=== PATIENT | male | born 1985 | race Caucasian/White ===

== ENCOUNTER 2016-12-20 20:26 | Inpatient (IN) | payer BC, MEDICAID, OTHER ==
--- NOTE | 2016-12-20 22:11 | ED ---
Psych HPI - General Chief Complaint: Psychiatric Symptoms Stated Complaint: Petition Time Seen by Provider: 12/20/16 20:35 Source: patient, police, RN notes reviewed Mode of arrival: ambulatory Limitations: no limitations - History of Present Illness Initial Comments: 31-year-old male presents emergency Department with police for psychiatric evaluation. Patient was arrested today for DUI. Patient states she's been under a lot of stress Aziz hadn't multiple life changes and the events recently. Patient states that he was in [facility] cell started having a panic attack and states he tried to hang himself with a blanket. Patient had a tight around his neck reportedly. Patient had no loss conscious. Patient states that he did punch the wall but has only abrasions to her right hand no pain. Patient does admit to alcohol use and marijuana use. Patient denies any suicidal thoughts or homicidal thoughts time. Patient denies any headache, back pain or any other complaints. - Related Data Home Medications Medication Instructions Recorded Confirmed Diazepam [Valium] 10 mg PO DAILY PRN 12/20/16 12/20/16 HYDROcodone/APAP 10-325MG [[place] 0.5 tab PO DAILY PRN 12/20/16 12/20/16 10-325] Allergies Allergy/AdvReac Type Severity Reaction Status Date / Time No Known Allergies Allergy Verified 12/20/16 21:48 Review of Systems ROS Statement: Those systems with pertinent positive or pertinent negative responses have been documented in the HPI. ROS Other: All systems not noted in ROS Statement are negative. Past Medical History Additional Past Medical History / Comment(s): concussion, History of Any Multi-Drug Resistant Organisms: None Reported Past Surgical History: No Surgical Hx Reported Past Psychological History: Anxiety Smoking Status: Current every day smoker Past Alcohol Use History: Occasional Past Drug Use History: Marijuana General Exam Limitations: no limitations General appearance: alert, in no apparent distress Head exam: Present: atraumatic, normocephalic, normal inspection Eye exam: Present: normal appearance, PERRL, EOMI. Absent: scleral icterus, conjunctival injection, periorbital swelling ENT exam: Present: normal exam, mucous membranes moist Neck exam: Present: normal inspection, full ROM. Absent: tenderness, meningismus, lymphadenopathy Respiratory exam: Present: normal lung sounds bilaterally. Absent: respiratory distress, wheezes, rales, rhonchi, stridor Cardiovascular Exam: Present: regular rate, normal rhythm, normal heart sounds. Absent: systolic murmur, diastolic murmur, rubs, gallop, clicks Extremities exam: Present: other (Abrasions of the right hand along the MCPs with no tenderness neurovascular intact) Back exam: Present: full ROM. Absent: tenderness Neurological exam: Present: alert, oriented X3, CN II-XII intact Psychiatric exam: Present: normal affect, normal mood Skin exam: Present: warm, dry, intact, normal color. Absent: rash Course Vital Signs 12/20/16 20:29 Temperature 98.1 F Pulse Rate 82 Respiratory 16 Rate Blood Pressure 137/98 O2 Sat by Pulse 98 Oximetry Medical Decision Making - Lab Data Lab Results 12/20/16 Range/Units 20:44 Urine Opiates Screen Not Detected (NotDetected) Ur Oxycodone Screen Not Detected (NotDetected) Urine Methadone Screen Not Detected (NotDetected) Ur Propoxyphene Screen Not Detected (NotDetected) Ur Barbiturates Screen Not Detected (NotDetected) U Tricyclic Antidepress Not Detected (NotDetected) Ur Phencyclidine Scrn Not Detected (NotDetected) Ur Amphetamines Screen Not Detected (NotDetected) U Methamphetamines Scrn Not Detected (NotDetected) U Benzodiazepines Scrn Detected H (NotDetected) Urine Cocaine Screen Not Detected (NotDetected) U Marijuana (THC) Screen Detected H (NotDetected) Disposition Clinical Impression: Depression, Alcohol intoxication Disposition: ADMITTED IP TO THIS [facility] Condition: Stable Referrals: None,Stated [Primary Care Provider] - 1-2 days
[2016-12-21] MEDS ORDERED: LORazepam 1 MG TAB PO STA (01:10)
[2016-12-21] MEDS ORDERED: MAGNESIUM HYDROXIDE 2,400 MG/10 ML CUP PO PRN (01:26)
[2016-12-21] MEDS ORDERED: ACETAMINOPHEN TAB 325 MG TAB PO PRN (01:26)
[2016-12-21] MEDS ORDERED: MAG HYDROX/AL HYDROX/SIMETH 30 ML CUP PO PRN (01:26)
[2016-12-21] MEDS: OLANZapine ODT 5 MG TAB PO PRN ×2 (01:57→22:21)
[2016-12-21 08:00] LABS: Basophils % (A) 1 %; CH 31.1; CHCM 33.3; Eosinophils # (A) 0.1 k/uL (0-0.7); Eosinophils % (A) 1 %; HCT 47.7 % (39.0-53.0); HDW 2.28; HGB 15.5 gm/dL (13.0-17.5); Luc # (Auto) 0.23; Luc % (Auto) 3; Lymphocytes % (A) 41 %; MCH 30.5 pg (25.0-35.0); MCHC 32.5 g/dL (31.0-37.0); MCV 93.8 fL (80.0-100.0); Mean Platelet Volume 7.9; Monocytes # (A) 0.5 k/uL (0-1.0); Monocytes % (A) 6 %; Neutrophils # (A) 3.5 k/uL (1.3-7.7); Neutrophils % (A) 48 %; RBC 5.09 m/uL (4.30-5.90); WBC 7.3 k/uL (3.8-10.6); WBC (Perox) 7.09
[2016-12-21 08:14] LABS: ALT 37 U/L (21-72); AST 30 U/L (17-59); Alkaline Phosphatase 60 U/L (38-126); Anion Gap 9 mmol/L; Blood Urea Nitrogen 13 mg/dL (9-20); Calcium 9.6 mg/dL (8.4-10.2); Carbon Dioxide 29 mmol/L (22-30); Chloride 105 mmol/L (98-107); Glucose 83 mg/dL (74-99); Non-African American GFR(MDRD) >60 (>60 ml/min/1.73 sqM); Potassium 4.6 mmol/L (3.5-5.1); Sodium 143 mmol/L (137-145); Total Protein 7.7 g/dL (6.3-8.2)
--- NOTE | 2016-12-21 11:34 | P.HP ---
Psychiatric H&P - . H&P Date: 12/21/16 History & Physical: IDENTIFYING DATA: Mr. Salguero is a 31-year-old single male transferred from senior living with a Petition completed by a certification officer. The petition read "while in holding cell Mr Salguero was attempting to tie a sheet to cage to attempt to hang himself/made statements his life is over." HISTORY OF PRESENT ILLNESS: He stated that he developed a panic attack when he was in senior living. He described himself as feeling as though the "almazan were closing in". He tied one end of a sheet around his neck but alleged that he did not tie the other end to the cell "cage". He knew that he was under camera surveillance and thought that this gesture would expedite his release from senior living. He was surprised that authorities brought him to the psychiatric unit. His BAT on presentation to the was 0.120. His UDS was positive for benzodiazepines and marijuana. He was drinking all day Wednesday and by his account "tied one on." He described drinking several alcoholic beverages. He talked about asking his girlfriend to purchase a battery for his boat. She did not return and after 4 hours he went to her home looking for her. While he was there another man walked into the house. He then learned that his girlfriend was having an affair with this man. He and his girlfriend had been arguing because she recently had an and he did not want her to abort the child. He denied that they had other conflicts in the relationship. He was surprised to learn that she was involved with another man. He rented a [employer] trailer and was in the process of moving his belongings from her home when the "police surrounded by car." Apparently, his girlfriend filed a police report that he broke into her house and stole one of her handguns. He stated that there was no need for him to break into her home because he has a briones. The police did not find a handgun on his person or in his car. He stated the police confirmed that there is no evidence of forced entry into her house. The police arrested him and charged him with an OUI. He denied feeling depressed or having thoughts of or suicide. He denied feeling anxious or experiencing panic attacks. He denied alcohol withdrawal symptoms. She denied psychotic symptoms such as auditory or visual hallucinations, ideas reference, thought insertion, thought broadcasting or thought control. PAST PSYCHIATRIC HISTORY: He denied a history of mental health treatment or prior psychiatric hospitalizations. His primary care provider has prescribed Valium and Xanax for the treatment of anxiety complaints. PAST MEDICAL HISTORY: He denied major medical illnesses. ALLERGIES: NO KNOWN DRUG ALLERGIES. SUBSTANCE USE HISTORY: He drinks to intoxication one to 2 times per week. His family have complaining to him about his alcohol use. He smokes marijuana but denied use of other drugs. He has not participated in a substance abuse treatment program and has not attended Alcoholics Anonymous. FAMILY PSYCHIATRIC/SUBSTANCE USE HISTORY: He denied a family history of mental health or psychiatric problems. LEGAL HISTORY: He has one prior DUI for driving his boat intoxicated. SOCIAL HISTORY: He was born and raised in an intact family. He has 1 brother. He graduated from high school. He was not in the . He has been living with his ex-girlfriend for 2 years. He still been and has no children. 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 MENTAL STATUS EXAM: He presented as a casually groomed 31-year-old male who was pleasant on approach. He made eye contact and attended to the interview. No distinguishing features or prominent physical abnormalities. He had an anxious facial expression. He is alert and oriented to person, place and time. He showed no abnormality of psychomotor activity. He had no abnormal involuntary movements. His speech was spontaneous with normal rate, rhythm and volume. He had no articulation difficulties. His affect was anxious but stable and appropriate. He denied suicidal ideation or wishes. He denied homicidal ideation. He denied feeling hopeless, helpless or worthless. He ruminated about this hospitalization and the need to be discharged to return to work tomorrow. He denied ideas reference, paranoid ideation or delusional thinking. His thinking was concrete but his associations were coherent and logical. He did not demonstrate clang associations, perseverations, neologisms or blocking. He denied hallucinations and did not appear to be responding to internal stimuli. Global impression of intellect is average. He is unaware of his alcohol use problems or need for treatment. STRENGTHS: Supportive family, stable income, good physical health. WEAKNESSES: Unstable interpersonal relationships, alcohol use problems. IMPRESSION: Is a 31-year-old male admitted involuntarily from senior living with a suicide attempt or gesture while he was in his senior living cell. He denied that his actions were a suicide attempt or gesture. He complained that he experienced a panic attack while he was in the senior living cell and made the gesture and was released from senior living. He was incarcerated following a OWI because he was intoxicated and unsafe to operate a vehicle. He has history of one prior DUI. He denied all psychiatric symptoms except for anxiety. He shows minimal insight into his alcohol use problems. He definitely has an alcohol use disorder and possibly anxiety unspecified anxiety disorder. PRINCIPLE DIAGNOSIS: Alcohol intoxication, alcohol use disorder moderate, unspecified anxiety disorder RECOMMENDATION: Continue inpatient psychiatric hospitalization. Obtain collateral information from family. Lorazepam 1 mg by mouth her to 8 hours when necessary for anxiety or alcohol withdrawal symptoms. Encourage participation in therapeutic groups and activities. Evaluate for ankle status response to treatment daily basis. Allergies Allergy/AdvReac Type Severity Reaction Status Date / Time No Known Allergies Allergy Verified 12/20/16 21:48 Vital Signs Temp 98.1 F 12/20/16 20:29 Pulse 82 12/20/16 20:29 Resp 16 12/20/16 20:29 BP 137/98 12/20/16 20:29 Pulse Ox 98 12/20/16 20:29 Intake & Output 12/20/16 12/21/16 12/21/16 18:59 06:59 18:59 Weight 81.647 kg Laboratory Last Values WBC 7.3 k/uL (3.8-10.6) 12/21/16 07:45 RBC 5.09 m/uL (4.30-5.90) 12/21/16 07:45 Hgb 15.5 gm/dL (13.0-17.5) 12/21/16 07:45 Hct 47.7 % (39.0-53.0) 12/21/16 07:45 MCV 93.8 fL (80.0-100.0) 12/21/16 07:45 MCH 30.5 pg (25.0-35.0) 12/21/16 07:45 MCHC 32.5 g/dL (31.0-37.0) 12/21/16 07:45 RDW 13.0 % (11.5-15.5) 12/21/16 07:45 Plt Count 191 k/uL (150-450) 12/21/16 07:45 Neutrophils % 48 % 12/21/16 07:45 Lymphocytes % 41 % 12/21/16 07:45 Monocytes % 6 % 12/21/16 07:45 Eosinophils % 1 % 12/21/16 07:45 Basophils % 1 % 12/21/16 07:45 Neutrophils # 3.5 k/uL (1.3-7.7) 12/21/16 07:45 Lymphocytes # 3.0 k/uL (1.0-4.8) 12/21/16 07:45 Monocytes # 0.5 k/uL (0-1.0) 12/21/16 07:45 Eosinophils # 0.1 k/uL (0-0.7) 12/21/16 07:45 Basophils # 0.0 k/uL (0-0.2) 12/21/16 07:45 Sodium 143 mmol/L (137-145) 12/21/16 07:45 Potassium 4.6 mmol/L (3.5-5.1) 12/21/16 07:45 Chloride 105 mmol/L (98-107) 12/21/16 07:45 Carbon Dioxide 29 mmol/L (22-30) 12/21/16 07:45 Anion Gap 9 mmol/L 12/21/16 07:45 BUN 13 mg/dL (9-20) 12/21/16 07:45 Creatinine 1.10 mg/dL (0.66-1.25) 12/21/16 07:45 Est GFR (MDRD) Af Amer >60 (>60 ml/min/1.73 sqM) 12/21/16 07:45 Est GFR (MDRD) Non-Af >60 (>60 ml/min/1.73 sqM) 12/21/16 07:45 Glucose 83 mg/dL (74-99) 12/21/16 07:45 Calcium 9.6 mg/dL (8.4-10.2) 12/21/16 07:45 Total Bilirubin 1.0 mg/dL (0.2-1.3) 12/21/16 07:45 AST 30 U/L (17-59) 12/21/16 07:45 ALT 37 U/L (21-72) 12/21/16 07:45 Alkaline Phosphatase 60 U/L (38-126) 12/21/16 07:45 Total Protein 7.7 g/dL (6.3-8.2) 12/21/16 07:45 Albumin 4.8 g/dL (3.5-5.0) 12/21/16 07:45 TSH 3.240 mIU/L (0.465-4.680) 12/21/16 07:45 Urine Opiates Screen Not Detected (NotDetected) 12/20/16 20:44 Ur Oxycodone Screen Not Detected (NotDetected) 12/20/16 20:44 Urine Methadone Screen Not Detected (NotDetected) 12/20/16 20:44 Ur Propoxyphene Screen Not Detected (NotDetected) 12/20/16 20:44 Ur Barbiturates Screen Not Detected (NotDetected) 12/20/16 20:44 U Tricyclic Antidepress Not Detected (NotDetected) 12/20/16 20:44 Ur Phencyclidine Scrn Not Detected (NotDetected) 12/20/16 20:44 Ur Amphetamines Screen Not Detected (NotDetected) 12/20/16 20:44 U Methamphetamines Scrn Not Detected (NotDetected) 12/20/16 20:44 U Benzodiazepines Scrn Detected (NotDetected) H 12/20/16 20:44 Urine Cocaine Screen Not Detected (NotDetected) 12/20/16 20:44 U Marijuana (THC) Screen Detected (NotDetected) H 12/20/16 20:44 12/21/16 08:53 12/21/16 10:37
[2016-12-21] MEDS: LORazepam 1 MG TAB PO PRN ×2 (12:30→20:44)
--- NOTE | 2016-12-21 13:50 | P.CONS ---
History of Present Illness - Reason for Consult Consult date: 12/21/16 Medical Management Requesting physician: Castro Shaffer - Chief Complaint Depression, suicidal ideation, alcoholism, anxiety and panic attacks. - History of Present Illness 31-year-old male who apparently get involved with slight argument with his girlfriend and was kicked out of the house was getting his stuff out of his girlfriend house by [employer] trailer when his friend get his boat [address]. Apparently his girlfriend called [employer] for him police records clerk show up to arrest him while he is on Route between the 2 houses and was pulled out and found to have quieted alcohol and board was giving or URI and patient was arrested and taken to presented because his girlfriend claimed that he take her door and broke it. While he is waiting in residential in his [facility] cell he was spotted on camera that his dying a role in trying to hang himself. surveillance officer the patient him and brought him to demurs department at [facility] where he was admitted to the psych unit for the above problem. Review of Systems Constitutional: Reports fatigue, Reports lethargy, Reports poor appetite, Reports weakness, Denies as per HPI, Denies anorexia, Denies chills, Denies chronic headaches, Denies chronic pain, Denies daytime sleepiness, Denies fever , Denies malaise, Denies night sweats, Denies sweats, Denies weight gain, Denies weight loss Eyes: bilateral as per HPI Ears, nose, mouth and throat: Reports nasal congestion, Reports sinus pressure, Denies as per HPI, Denies ant. neck pain, Denies bleeding gums, Denies dental pain, Denies dysphagia, Denies epistaxis, Denies headache, Denies hoarseness, Denies mouth pain, Denies nasal discharge, Denies neck fullness/pressure, Denies neck lump, Denies nose pain, Denies odynophagia, Denies post-nasal drip, Denies sinus pain, Denies swelling in mouth, Denies swelling in throat, Denies sore throat, Denies vertigo, Denies voice changes Cardiovascular: Denies as per HPI, Denies chest pain, Denies claudication, Denies decreased exercise tolerance, Denies dyspnea on exertion, Denies edema, Denies high blood pressure, Denies irregular heart beat, Denies leg edema, Denies lightheadedness, Denies orthopnea, Denies palpitations, Denies paroxysmal nocturnal dyspnea, Denies phlebitis, Denies rapid heart beat, Denies shortness of breath, Denies syncope Respiratory: Denies as per HPI, Denies congestion, Denies cough, Denies cough with sputum, Denies dyspnea, Denies excessive sputum, Denies hemoptysis, Denies home oxygen, Denies pain, Denies pain on inspiration, Denies pleurisy, Denies respiratory infections, Denies sleep apnea, Denies snoring, Denies wheezing Gastrointestinal: Reports dyspepsia, Reports indigestion, Denies as per HPI, Denies abdominal pain, Denies belching, Denies bloating, Denies BRBPR, Denies change in bowel habits, Denies coffee ground emesis, Denies constipation, Denies diarrhea, Denies early satiety, Denies excessive gas, Denies heartburn, Denies hematemesis, Denies hematochezia, Denies jaundice, Denies lactose intolerance, Denies loss of appetite, Denies melena, Denies nausea, Denies vomiting Genitourinary: Denies as per HPI, Denies decreased libido, Denies difficulties fathering child, Denies discharge, Denies dysuria, Denies erectile dysfunction, Denies flank pain, Denies genital pain, Denies genital sores, Denies hematuria, Denies impotence, Denies incontinence, Denies kidney stones, Denies nocturia, Denies polyuria, Denies testicular lump, Denies testicular pain, Denies urinary frequency, Denies urinary hesitancy, Denies urinary retention Musculoskeletal: Reports low back pain, Reports myalgias, Reports neck pain, Denies as per HPI, Denies arm numbness/tingling, Denies atrophy, Denies fractures, Denies frequent falls, Denies gait dysfunction, Denies hot joints, Denies leg numbness/tingling, Denies limitation of motion, Denies loss of height , Denies morning stiffness, Denies muscle cramps, Denies muscle weakness, Denies neck stiffness, Denies prior amputations, Denies redness of joints, Denies shooting arm pain, Denies shooting leg pain Integumentary: Denies as per HPI, Denies acne, Denies boils, Denies brittle nails, Denies change in hair/nails, Denies color changes, Denies darkening of skin, Denies depigmentation, Denies dryness, Denies foot/leg ulcers, Denies growths, Denies hirsutism, Denies lesions, Denies onychomycosis, Denies pruritus , Denies rash, Denies sores, Denies striae, Denies unusual bruising, Denies wounds Neurological: Denies as per HPI, Denies aphasia, Denies ataxia, Denies balance difficulties, Denies burning pain, Denies change in mentation, Denies change in smell/taste, Denies change in speech, Denies confusion, Denies convulsions, Denies double vision, Denies gait dysfunction, Denies head injury, Denies headaches, Denies hearing difficulties, Denies lack of coordination, Denies loss of vision, Denies memory loss, Denies migraines, Denies motor disturbance, Denies numbness, Denies paralysis, Denies paresthesias, Denies seizures, Denies sensory deficit, Denies spasticity, Denies syncope, Denies tic, Denies tingling , Denies transient paralysis, Denies tremors, Denies vertigo, Denies weakness, Denies visual changes Psychiatric: Reports anhedonia, Reports anxiety, Reports anxiety attacks, Reports depression, Reports difficulty concentrating, Reports mood swings, Reports sadness/tearfulness, Denies as per HPI, Denies change in appetite, Denies change in libido, Denies change in sleep habits, Denies confusion, Denies disorientation, Denies hallucinations, Denies hopelessness, Denies hypersomnia, Denies insomnia, Denies irritability, Denies memory loss, Denies paranoia, Denies sleep disturbances, Denies suicidal ideation Endocrine: Reports excessive thirst, Reports fatigue, Denies as per HPI, Denies cold intolerance, Denies deepening of the voice, Denies excessive sweating, Denies flushing, Denies heat intolerance, Denies high blood sugars, Denies increase in ring/shoe/hat size, Denies low blood sugars, Denies nocturia, Denies palpitations, Denies polydipsia, Denies polyphagia, Denies polyuria, Denies proptosis, Denies recent glucocorticoid use, Denies thyroid mass, Denies weight change Hematologic/Lymphatic: Denies as per HPI, Denies easy bleeding, Denies easy bruising, Denies lymphadenopathy, Denies lymphedema, Denies thrombophilia Allergic/Immunologic: Denies as per HPI, Denies allergic rhinitis, Denies anaphylaxis, Denies angioedema, Denies gluten intolerance, Denies persistent infections, Denies seasonal allergies, Denies urticaria, Denies wheezing Past Medical History Additional Past Medical History / Comment(s): concussion, History of Any Multi-Drug Resistant Organisms: None Reported Past Surgical History: No Surgical Hx Reported Past Psychological History: Anxiety Smoking Status: Current every day smoker Past Alcohol Use History: Occasional Past Drug Use History: Marijuana Medications and Allergies Home Medications Medication Instructions Recorded Confirmed Type Diazepam [Valium] 10 mg PO DAILY PRN 12/20/16 12/20/16 History HYDROcodone/APAP 10-325MG [[place] 0.5 tab PO DAILY PRN 12/20/16 12/20/16 History 10-325] Allergies Allergy/AdvReac Type Severity Reaction Status Date / Time No Known Allergies Allergy Verified 12/20/16 21:48 Physical Exam Vitals: Vital Signs Temp Pulse Resp BP Pulse Ox 12/20/16 20:29 98.1 F 82 16 137/98 98 Intake and Output 12/20/16 12/21/16 12/21/16 22:59 06:59 14:59 Other: Weight 81.647 kg - Constitutional General appearance: no average body habitus, cooperative, no disheveled, no mild distress, no morbidly obese, no acute distress, no obese, no severe distress, no thin - EENT Eyes: normal appearance ENT: no hard of hearing, no hearing grossly normal, no NA/AT, no normal oropharynx, no other, no pharyngeal erythema, no thrush, no tonsillar exudates, no tonsillar swelling Ears: bilateral: normal - Neck Neck: normal ROM Carotids: bilateral: upstroke normal Thyroid: bilateral: normal size - Respiratory Respiratory: bilateral: CTA - Cardiovascular Rhythm: regular Heart sounds: normal: S1, S2 Abnormal Heart Sounds: no systolic murmur, no diastolic murmur, no rub, no S3 Gallop, no S4 Gallop, no click, no other - Gastrointestinal General gastrointestinal: no absent bowel sounds, no decreased bowel sounds, no distended, no hepatomegaly, no hyperactive bowel sounds, no normal bowel sounds , no organomegaly, no rigid, no scaphoid, soft, no splenomegaly, no tenderness, no umbilical hernia, no ventral hernia - Integumentary Integumentary: no calor, no cellulitis, no cyanotic, no decreased turgor, no flushed, no jaundiced, normal, no normal turgor, no pale, no rash, no ulcer - Neurologic Neurologic: CNII-XII intact - Musculoskeletal Musculoskeletal: gait normal, generalized weakness - Psychiatric Psychiatric: A&O x's 3, appropriate affect Results CBC & Chem 7: 12/21/16 07:45 12/21/16 07:45 Labs: Abnormal Lab Results - Last 24 Hours (Table) 12/20/16 Range/Units 20:44 U Benzodiazepines Scrn Detected H (NotDetected) U Marijuana (THC) Screen Detected H (NotDetected) Assessment and Plan Plan: 1 severe depression and suicidal ideation: Patient was started on Zyprexa and lorazepam continue both medication. 2 alcoholism: Patient is trying to quit will continue lorazepam for any sign and symptom of DVT. 3 severe anxiety attacks he was on Valium as an outpatient. 4 chronic lower back pain: Post injury has been on hydrocodone but has not been prescribed by any primary care in the last few month. 5 alcoholism: Patient apparently drank heavily 2-3 days a week regular basis patient be seen psychiatry and will have counseling. 6 GI prophylaxis: Patient be on Pepcid 20 mg daily. 7 chronic substance abuse: Patient is using marijuana on regular basis. CODE STATUS: Full code. Dr. Shaffer thank you very much for the consult if I can be any further help to please let me know.
[2016-12-22 06:28] VITALS: BP 133/81; PULSE 61; RESP 17; TEMP 98.3
[2016-12-22] MEDS ORDERED: FAMOTIDINE 20 MG TAB PO SCH (09:00)
--- NOTE | 2016-12-22 12:28 | P.DS ---
Providers Date of admission: 12/21/16 01:22 Attending physician: Castro Shaffer MD Consults: 12/21/16 01:26 Consult Physician Routine Consulting Provider: Castro Grossman Reason/Comments: medical management Do you want consulting provider notified?: Yes, Notify in am Primary care physician: Stated None - Discharge Diagnosis(es) (1) Alcohol intoxication Current Visit: Yes Status: Acute Priority: High (2) Depression Current Visit: Yes Status: Acute Priority: Medium (3) Suicide gesture Current Visit: Yes Status: Acute Priority: Low Hospital Course: Mr. Motley a 31-year-old single male transferred from local longterm with a petition completed by police lieutenant. The petition" while in the holding cell Mr. Santoro was attempting to tie a sheet 2 Cage attempted to hang himself/made statements as life is over." He was arrested and placed in longterm with charges of DUI. He denied that he had attempted to hang herself. Rather, he described experiencing increased anxiety and alleged she had a panic attack where he felt as though the almazan of the longterm cell were "closing in on me." He alleged that he tied a sheet around his neck but did not attach the other end because he knew he was on camera surveillance and hoped that this action would expedite his release from longterm. He was surprised when authorities brought him to the psychiatric unit. His BAT on presentation to the [facility] was 0.120 and his UDS was positive for benzodiazepines and marijuana. Please see H&P dated 12/21/2016. We admitted him to the psychiatric unit under the care of this race and sports book writer. We provided a biopsychosocial assessment. He consented to the admission and signed the voluntary admission form. He repeatedly denied feeling depressed or having thoughts of or suicide. The merchandising consultant completed initial physical exam and medical history and diagnosis alcohol use disorder, anxiety and chronic low back pain. The merchandising consultant recommended Pepcid 20 mg daily for GI prophylaxis. Mr. Salguero had minimal symptoms of alcohol withdrawal. He minimized the severity of his alcohol use and attributed the recent intoxication to a recent separation with a live-in girlfriend. He posed no management problem and displayed no episodes of behavioral dyscontrol or self- harm. He was not interested in residential substance abuse treatment but overtly accepted the recommendation for Alcoholics Anonymous. At the time of discharge he was neatly groomed, pleasant and cooperative. He had an anxious facial expression. He showed no abnormality of psychomotor activity. His speech was spontaneous with normal rate, rhythm and volume. His affect was anxious but stable and appropriate. He denied suicidal ideation or wishes. He denied psychotic symptoms such as ideas reference, paranoid ideation or delusional thinking. His thinking was concrete but his associations were coherent and logical. He denied hallucinations and did not appear to be responding to internal stimuli. The discharge recommendation to follow-up with his primary care provider and attend Alcoholics Anonymous. Patient Condition at Discharge: Stable Plan - Discharge Summary Discharge Medication List Diazepam [Valium] 10 mg PO DAILY PRN 12/20/16 [History] Follow up Appointment(s)/Referral(s): [facility]Outside[facility] - 12/24/16 1:30 pm (12/24/16 at [address] ) None,Stated [Primary Care Provider] - 1-2 days Patient Instructions/Handouts: Depression (DC), Suicide Prevention for Adults ( DC) Activity/Diet/Wound Care/Special Instructions: Activity and diet as tolerated. Avoid the use of street drugs and alcohol. Take all medications as prescribed. When you are in need of refills on your medications please contact your medical provider and/or outpatient psychiatrist to have this done. Please go to scheduled outpatient appointment for aftercare. If symptoms return or become worse call the crisis line at and/ or go to the nearest emergency room for an evaluation. Discharge Disposition: HOME SELF-CARE
== END 2016-12-22 12:08 | disposition home or self-care (01) | DRG 881 ==
LOC: EC 20:26 → 3MHU 12-21 01:22
PROVIDERS: ADMIT Psychiatry & Neurology Psychiatry; ATTEND Psychiatry & Neurology Psychiatry
DX: F32.9 Major depressive disorder, single episode, unspecified (principal); R45.851 Suicidal ideations; F41.0 Panic disorder [episodic paroxysmal anxiety]; F10.229 Alcohol dependence with intoxication, unspecified; F17.200 Nicotine dependence, unspecified, uncomplicated; S60.511A Abrasion of right hand, initial encounter; G89.29 Other chronic pain; M54.5 Low back pain; F12.10 Cannabis abuse, uncomplicated; F41.9 Anxiety disorder, unspecified; X58.XXXA Exposure to other specified factors, initial encounter; Y92.9 Unspecified place or not applicable
CPT/HCPCS: 80053; 80306; 82075; 84443; 85025

== ENCOUNTER 2017-02-18 11:07 | Emergency (ER) | payer MEDICAID, OTHER ==
[2017-02-18 11:12] VITALS: RESP 15
--- NOTE | 2017-02-18 11:40 | ED ---
General Adult HPI - General Chief complaint: Psychiatric Symptoms Stated complaint: DEPRESSION Time Seen by Provider: 02/18/17 11:10 Source: patient, RN notes reviewed Mode of arrival: ambulatory Limitations: no limitations - History of Present Illness Initial comments: This is a 31-year-old male presents emergency department with past medical history significant for anxiety and depression. Patient states he has attempted suicide in the past. Patient states today though he doesn't think he suicidal he doesn't feel safe going home and he would like to be admitted for a couple of days. Patient states he has not been drinking is not doing any drugs. Patient states physically he has no complete syncope. Patient denies headache patient denies numbness weakness. Patient denies chest pain developing shortness breath. Patient denies any recent fever chills or cough. Patient denies abdominal pain patient denies nausea vomiting or diarrhea. - Related Data Home Medications Medication Instructions Recorded Confirmed Diazepam [Valium] 5 mg PO BID PRN 02/18/17 02/18/17 Allergies Allergy/AdvReac Type Severity Reaction Status Date / Time No Known Allergies Allergy Verified 02/18/17 11:55 Review of Systems ROS Statement: Those systems with pertinent positive or pertinent negative responses have been documented in the HPI. ROS Other: All systems not noted in ROS Statement are negative. Past Medical History Additional Past Medical History / Comment(s): concussion, History of Any Multi-Drug Resistant Organisms: None Reported Past Surgical History: No Surgical Hx Reported Past Psychological History: Anxiety Smoking Status: Former smoker Past Alcohol Use History: None Reported Past Drug Use History: Marijuana General Exam - General Exam Comments Initial Comments: GENERAL: Patient is well-developed and well-nourished. Patient is nontoxic and well- hydrated and is in no acute distress. ENT: Neck is soft and supple. No significant lymphadenopathy is noted. Oropharynx is clear. Moist mucous membranes. Neck has full range of motion without eliciting any pain. EYES: The sclera were anicteric and conjunctiva were pink and moist. Extraocular movements were intact and pupils were equal round and reactive to light. Eyelids were unremarkable. PULMONARY: Unlabored respirations. Good breath sounds bilaterally. No audible rales rhonchi or wheezing was noted. CARDIOVASCULAR: There is a regular rate and rhythm without any murmurs gallops or rubs. ABDOMEN: Soft and nontender with normal bowel sounds. SKIN: Skin is clear with no lesions or rashes and otherwise unremarkable. NEUROLOGIC: Patient is alert and oriented x3. Cranial nerves II through XII are grossly intact. Motor and sensory are also intact. Normal speech, volume and content. Symmetrical smile. MUSCULOSKELETAL: Normal extremities with adequate strength and full range of motion. LYMPHATICS: No significant lymphadenopathy is noted PSYCHIATRIC: Patient states very depressed and he does not feel safe going home. Limitations: no limitations Course Vital Signs 02/18/17 11:10 Temperature 98.8 F Pulse Rate 75 Respiratory 15 Rate Blood Pressure 134/83 O2 Sat by Pulse 99 Oximetry Medical Decision Making - Medical Decision Making EPS evaluated the patient and the patient will be discharged home and the patient is okay with this. - Lab Data Lab Results 02/18/17 Range/Units 11:17 Urine Opiates Screen Not Detected (NotDetected) Ur Oxycodone Screen Not Detected (NotDetected) Urine Methadone Screen Not Detected (NotDetected) Ur Propoxyphene Screen Not Detected (NotDetected) Ur Barbiturates Screen Not Detected (NotDetected) U Tricyclic Antidepress Not Detected (NotDetected) Ur Phencyclidine Scrn Not Detected (NotDetected) Ur Amphetamines Screen Not Detected (NotDetected) U Methamphetamines Scrn Not Detected (NotDetected) U Benzodiazepines Scrn Detected H (NotDetected) Urine Cocaine Screen Not Detected (NotDetected) U Marijuana (THC) Screen Detected H (NotDetected) Disposition Clinical Impression: Acute anxiety, Situational depression Disposition: HOME SELF-CARE Condition: Good Referrals: Nelly Cuello DO [Primary Care Provider] - 1-2 days Time of Disposition: 14:03
[2017-02-18 14:20] VITALS: BP 145/92; PULSE 70; TEMP 98.9
== END 2017-02-18 14:21 | disposition home or self-care (01) ==
LOC: EC 11:07
DX: F43.21 Adjustment disorder with depressed mood (principal); F41.9 Anxiety disorder, unspecified; Z87.891 Personal history of nicotine dependence
CPT/HCPCS: 80306; 82075; 99284

== ENCOUNTER 2017-04-05 22:11 | Emergency (ER) | payer OTHER ==
[2017-04-05] MEDS ORDERED: SODIUM CHLORIDE 0.9% 1,000 ML IV STA ×2 (22:40)
[2017-04-05 23:02] LABS: Basophils % (A) 0 %; CH 31.3; CHCM 35.7; Eosinophils # (A) 0.1 k/uL (0-0.7); Eosinophils % (A) 1 %; HCT 42.6 % (39.0-53.0); HDW 2.61; HGB 14.5 gm/dL (13.0-17.5); Luc # (Auto) 0.21; Luc % (Auto) 2; Lymphocytes # (A) 3.3 k/uL (1.0-4.8); Lymphocytes % (A) 38 %; MCH 30.1 pg (25.0-35.0); MCHC 34.1 g/dL (31.0-37.0); MCV 88.2 fL (80.0-100.0); Mean Platelet Volume 8.1; Monocytes # (A) 0.5 k/uL (0-1.0); Monocytes % (A) 5 %; Neutrophils # (A) 4.7 k/uL (1.3-7.7); Neutrophils % (A) 54 %; RBC 4.83 m/uL (4.30-5.90); RDW 13.3 % (11.5-15.5); WBC 8.8 k/uL (3.8-10.6); WBC (Perox) 8.04
--- NOTE | 2017-04-05 23:04 | ED ---
Syncope HPI - General Chief Complaint: Syncope Stated Complaint: black outs Time Seen by Provider: 04/05/17 22:31 Source: patient Mode of arrival: wheelchair Limitations: no limitations - History of Present Illness Initial Comments: This 31-year-old white male presents with the complaint of having some syncopal episodes. He apparently has had approximately 6 episodes in the past couple of weeks. He denies any known seizure activities with these episodes. He does complain of a headache which is more in the frontal region. 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 His mother apparently made him come in for evaluation. He did not have any evaluations after falling off the roof. He states that he did hit his head at that time. He denies any drugs or alcohol. He does have a history of significant alcohol use. He states that he does take [place] 7.5 mg pills as well as Valium 5 mg pills. He denies any chest pain or shortness of breath. There is no neck pain or back pain. No other complaints or modifying factors. - Related Data Home Medications Medication Instructions Recorded Confirmed Diazepam [Valium] 5 mg PO BID PRN 02/18/17 04/05/17 HYDROcodone/APAP 7.5-325MG [[place] 1 tab PO Q6H PRN 04/05/17 04/05/17 7.5-325] Allergies Allergy/AdvReac Type Severity Reaction Status Date / Time No Known Allergies Allergy Verified 04/05/17 22:27 Review of Systems ROS Statement: Those systems with pertinent positive or pertinent negative responses have been documented in the HPI. ROS Other: All systems not noted in ROS Statement are negative. Past Medical History Past Medical History: No Reported History Additional Past Medical History / Comment(s): concussion, History of Any Multi-Drug Resistant Organisms: None Reported Past Surgical History: No Surgical Hx Reported Past Psychological History: Anxiety Smoking Status: Former smoker Past Alcohol Use History: None Reported Past Drug Use History: None Reported General Exam - General Exam Comments Initial Comments: GENERAL: The patient is well nourished and well hydrated. VITAL SIGNS: Heart rate, blood pressure, respiratory rate reviewed as recorded in nurse's notes. EYES: Pupils are round and reactive. Extraocular movements are intact. No conjunctival / lid redness or swelling. ENT: No external evidence of injury, swelling, or ecchymosis. Airway is patent. Throat is clear. NECK: Nontender. No swelling or evidence of injury. No subcutaneous emphysema. Trachea is midline. No thyroid mass. HEART: Regular rate and rhythm. Good peripheral pulses. LUNGS/CHEST: Breath sounds clear and equal bilaterally. No rales, rhonchi, or wheezes. No ecchymosis, subcutaneous emphysema, or tenderness. ABDOMEN: Abdomen soft without tenderness. No palpable masses or organomegaly. No peritoneal signs. No abdominal wall swelling or ecchymosis. EXTREMITIES: No extremity tenderness. Normal muscle tone and function. No thoracolumbar tenderness. NEUROLOGIC: Sensation is grossly intact. Cranial nerve exam reveals face is symmetrical, tongue is midline, speech is minimally slurred. SKIN: No abrasions or ecchymosis is noted. No induration or masses noted. PSYCHIATRIC: Alert and oriented. Appropriate behavior and judgment. Limitations: no limitations Course Vital Signs 04/05/17 04/05/17 04/05/17 22:15 22:30 23:38 Temperature 97.9 F Pulse Rate 88 82 74 Respiratory 16 16 16 Rate Blood Pressure 123/71 137/83 133/79 O2 Sat by Pulse 98 98 98 Oximetry Medical Decision Making - Medical Decision Making The patient was seen and examined. All diagnostics were reviewed. The EKG shows a normal sinus rhythm at a rate of 82. There is no acute ST-T wave changes identified. The AK interval is 158, the QRS duration is 92, and the QTc interval intervals 429. The computed tomography scan of the brain does not show any acute processes. The patient had a laboratory analysis and urinalysis which is all essentially within normal limits. The alcohol test is negative. He did request me to complete alcohol test as apparently he does need to be checked regularly for his recent DUI. The urinalysis does not show any acute process or evidence of infection. The patient is slurring his speech consistent with drug use. Is felt that he likely is taking a significant amount of benzodiazepines and narcotics and this is likely his pain problem. There does not appear to be any localized deficits. He is counseled regarding drug use. It is felt as though he is stable for discharge. He was instructed that I do not recommend that he be on a any or be driving any vehicles well on his narcotics and benzodiazepine medications. He does relate that he has had a problem with alcohol in the past. He is instructed that it is not felt as though being on benzodiazepines or narcotics at all is recommended when their addiction problems. It is felt that he should be off these medications completely. This is strongly emphasized. He is in no distress on recheck and is slurred speech has resolved. He requests some Valium while in the ER and this is refused. He leaves in no identifiable distress. - Lab Data Result diagrams: 04/05/17 22:30 04/05/17 22:30 Lab Results 04/05/17 04/05/17 04/05/17 Range/Units 22:30 22:30 23:35 WBC 8.8 (3.8-10.6) k/uL RBC 4.83 (4.30-5.90) m/uL Hgb 14.5 (13.0-17.5) gm/dL Hct 42.6 (39.0-53.0) % MCV 88.2 (80.0-100.0) fL MCH 30.1 (25.0-35.0) pg MCHC 34.1 (31.0-37.0) g/dL RDW 13.3 (11.5-15.5) % Plt Count 213 (150-450) k/uL Neutrophils % 54 % Lymphocytes % 38 % Monocytes % 5 % Eosinophils % 1 % Basophils % 0 % Neutrophils # 4.7 (1.3-7.7) k/uL Lymphocytes # 3.3 (1.0-4.8) k/uL Monocytes # 0.5 (0-1.0) k/uL Eosinophils # 0.1 (0-0.7) k/uL Basophils # 0.0 (0-0.2) k/uL Sodium 141 (137-145) mmol/L Potassium 4.0 (3.5-5.1) mmol/L Chloride 107 (98-107) mmol/L Carbon Dioxide 23 (22-30) mmol/L Anion Gap 11 mmol/L BUN 11 (9-20) mg/dL Creatinine 1.00 (0.66-1.25) mg/dL Est GFR (MDRD) Af Amer >60 (>60 ml/min/1.73 sqM) Est GFR (MDRD) Non-Af >60 (>60 ml/min/1.73 sqM) Glucose 83 (74-99) mg/dL Calcium 9.7 (8.4-10.2) mg/dL Total Bilirubin 0.5 (0.2-1.3) mg/dL AST 24 (17-59) U/L ALT 33 (21-72) U/L Alkaline Phosphatase 63 (38-126) U/L Total Protein 7.4 (6.3-8.2) g/dL Albumin 4.6 (3.5-5.0) g/dL TSH 3.420 (0.465-4.680) mIU/L Urine Color Light Yellow Urine Appearance Clear (Clear) Urine pH 6.0 (5.0-8.0) Ur Specific [place] 1.004 (1.001-1.035) Urine Protein Negative (Negative) Urine Glucose (UA) Negative (Negative) Urine Ketones Negative (Negative) Urine Blood Negative (Negative) Urine Nitrite Negative (Negative) Urine Bilirubin Negative (Negative) Urine Urobilinogen <2.0 (<2.0) mg/dL Ur Leukocyte Esterase Negative (Negative) Urine Opiates Screen Not Detected (NotDetected) Ur Oxycodone Screen Not Detected (NotDetected) Urine Methadone Screen Not Detected (NotDetected) Ur Propoxyphene Screen Not Detected (NotDetected) Ur Barbiturates Screen Not Detected (NotDetected) U Tricyclic Antidepress Not Detected (NotDetected) Ur Phencyclidine Scrn Not Detected (NotDetected) Ur Amphetamines Screen Not Detected (NotDetected) U Methamphetamines Scrn Not Detected (NotDetected) U Benzodiazepines Scrn Detected H (NotDetected) Urine Cocaine Screen Not Detected (NotDetected) U Marijuana (THC) Screen Not Detected (NotDetected) Serum Alcohol <10 mg/dL Disposition Clinical Impression: Syncopal episodes, Slurred speech, Narcotic drug use, History of benzodiazepine use Disposition: HOME SELF-CARE Condition: Fair Instructions: Syncope (ED) Additional Instructions: We do not recommend that you do any sitting or driving any vehicles while you' re on the [place], Valium, or similar substances. Referrals: None,Stated [Primary Care Provider] - 1-2 days Time of Disposition: 00:06
[2017-04-05 23:16] LABS: ALT 33 U/L (21-72); AST 24 U/L (17-59); Alcohol <10 mg/dL; Alkaline Phosphatase 63 U/L (38-126); Anion Gap 11 mmol/L; Blood Urea Nitrogen 11 mg/dL (9-20); Calcium 9.7 mg/dL (8.4-10.2); Carbon Dioxide 23 mmol/L (22-30); Chloride 107 mmol/L (98-107); Glucose 83 mg/dL (74-99); Non-African American GFR(MDRD) >60 (>60 ml/min/1.73 sqM); Sodium 141 mmol/L (137-145); Total Bilirubin 0.5 mg/dL (0.2-1.3); Total Protein 7.4 g/dL (6.3-8.2)
--- NOTE | 2017-04-05 23:34 | CT ---
EXAM: CT Head Without Intravenous Contrast CLINICAL HISTORY: Reason: syncope TECHNIQUE: Axial computed tomography images of the head/brain without intravenous contrast. CTDI is 57.40 mGy and DLP is 892.10 mGy-cm. This CT exam was performed using one or more of the following dose reduction techniques: automated exposure control, adjustment of the mA and/or kV according to patient size, and/or use of iterative reconstruction technique. COMPARISON: No relevant prior studies available. FINDINGS: Brain: Unremarkable. No hemorrhage. No significant white matter disease. No edema. Ventricles: Unremarkable. No hydrocephalus. Bones/joints: Unremarkable. No acute fracture. Soft tissues: Unremarkable. Sinuses: Unremarkable as visualized. No acute sinusitis. Mastoid air cells: No mastoid effusion. IMPRESSION: No acute intracranial abnormality is identified.
[2017-04-05 23:43] LABS: Appearance,Urine Clear (Clear); Bilirubin,Urine Negative (Negative); Glucose,Urine (UA) Negative (Negative); Ketones,Urine Negative (Negative); Leukocyte Esterase,Urine Negative (Negative); Nitrite,Urine Negative (Negative); Protein,Urine Negative (Negative); Specific Gravity,Urine 1.004 (1.001-1.035); UA Billing (MACRO vs. MICRO) CHEM; Urobilinogen,Urine <2.0 mg/dL (<2.0)
[2017-04-06 00:16] VITALS: BP 122/90; PULSE 72; RESP 18; TEMP 98.1
== END 2017-04-06 00:16 | disposition home or self-care (01) ==
LOC: EC 22:11
DX: R51 Headache (principal); R47.81 Slurred speech; F11.90 Opioid use, unspecified, uncomplicated; Z87.891 Personal history of nicotine dependence
CPT/HCPCS: 36415; 70450; 80053; 80306; 80320; 81003; 84443; 85025; 93005; 96360; 99284